=== PATIENT | male | born 1980 | race Caucasian/White ===

== ENCOUNTER → 2016-10-24 | Outpatient (CLI) | payer MEDICARE, MEDICAID ==
[~2016-10-24] MED LIST: AMITRIPTYLINE 550 MG PO; GLYBURIDE 5MG TA5 MG PO; METFORMIN 500M500 M1 PO
[2016-10-24 13:44] LABS: HEMOGLOBIN 16.6 g/dL (14.1-18.0); LYMPH # 1.3 K/mm3 (0.7-4.5); LYMPH % 37.7 % (10-50)
[2016-10-24 15:31] LABS: BUN 12 mg/dL (7-18)
[2016-10-24 15:34] LABS: GFR (ESTIMATED) 75 ML/MIN (>60)
== END ==
LOC: CARL-LAB 08:09
DX: E11.9 Type 2 diabetes mellitus without complications (principal); R53.83 Other fatigue